=== PATIENT | female | born 2005 | race Caucasian/White ===

== ENCOUNTER 2024-01-06 09:54 | Emergency (ER) | payer OTHER ==
[2024-01-06] MEDS ORDERED: Bacitracin 1 PK ONE (10:40)
== END 2024-01-06 10:43 | disposition home or self-care (01) ==
LOC: CSHERS 09:54
DX: S61.210A Laceration without foreign body of right index finger without damage to nail, initial encounter (principal); W26.8XXA Contact with other sharp object(s), not elsewhere classified, initial encounter
CPT/HCPCS: 12001; 99282